=== PATIENT | male | born 1970 | race Caucasian/White ===

== ENCOUNTER 2016-02-27 14:42 | Inpatient (IN) | END 2016-03-16 18:40 | disposition home health service (06) | DRG 717 | DX: N49.3 Fournier gangrene (principal); R65.10 Systemic inflammatory response syndrome (SIRS) of non-infectious origin without acute organ dysfunction; E11.65 Type 2 diabetes mellitus with hyperglycemia; I10 Essential (primary) hypertension; N49.2 Inflammatory disorders of scrotum; F17.200 Nicotine dependence, unspecified, uncomplicated; D72.829 Elevated white blood cell count, unspecified; R59.1 Generalized enlarged lymph nodes; N43.3 Hydrocele, unspecified; K43.9 Ventral hernia without obstruction or gangrene; E66.9 Obesity, unspecified; Z68.38 Body mass index [BMI] 38.0-38.9, adult; G47.33 Obstructive sleep apnea (adult) (pediatric); B95.4 Other streptococcus as the cause of diseases classified elsewhere ==